=== PATIENT | male | born 1975 | race Caucasian/White ===

== ENCOUNTER 2017-05-17 01:21 | Emergency (ER) | payer SELFPAY ==
[~2017-05-17] VITALS: Ht 185.4 cm; Wt 100.0 kg
[2017-05-17] MEDS ORDERED: LIDOCAINE HCL 1% 20ML VIAL (Pyxis) INJ MC ONE (03:45)
[2017-05-17] MEDS ORDERED: LIDOCAINE/EPINEPHR/TETRACAINE 3ML TP ONE (03:45)
[2017-05-17] MEDS ORDERED: BACITRACIN ZINC OINT UDPKT TOP ONE (03:45)
[2017-05-17] MEDS ORDERED: TETANUS, DIPHTHERIA, PERTUSSIS VAC/PF 0.5ML (>7YR OLD) IM ONE (03:45)
[2017-05-17] MEDS ORDERED: CEPHALEXIN 500MG CAPSULE PO ONE (05:15)
[2017-05-17 05:32] VITALS: BP 122/80
== END 2017-05-17 05:35 | disposition home or self-care (01) ==
LOC: ER 01:21
DX: S61.401A Unspecified open wound of right hand, initial encounter (principal); F17.200 Nicotine dependence, unspecified, uncomplicated; X58.XXXA Exposure to other specified factors, initial encounter; Y93.89 Activity, other specified; Y92.89 Other specified places as the place of occurrence of the external cause; Y99.8 Other external cause status
CPT/HCPCS: 73130; 90471; 90715; 99284; J3490; Z7610

== ENCOUNTER 2021-08-28 13:55 | Emergency (ER) | payer MEDICAID ==
[~2021-08-28] VITALS: Ht 172.7 cm; Wt 77.0 kg
[2021-08-28] MEDS ORDERED: KETOROLAC 30MG/ML VIAL IM ONE (15:00)
[2021-08-28] MEDS ORDERED: NAPR-1176 MT (15:41)
[2021-08-28 16:07] VITALS: BP 128/95
== END 2021-08-28 16:15 | disposition home or self-care (01) ==
LOC: ER 13:55
DX: M79.605 Pain in left leg (principal)
CPT/HCPCS: 73562; 96372; 99283; J1885

== ENCOUNTER 2021-08-31 19:03 | Emergency (ER) | payer MEDICAID ==
[~2021-08-31] VITALS: Ht 188 cm; Wt 86.0 kg
[~2021-08-31 19:03] MED LIST: NAPR-1176 MT
[2021-08-31] MEDS ORDERED: KETOROLAC 60MG/2ML VIAL IM ONE (19:30)
[2021-08-31] MEDS ORDERED: NAPR-681 MT (21:08)
[2021-08-31] MEDS ORDERED: LIDO1ADH5 TP (21:08)
[2021-08-31 21:27] VITALS: BP 121/81
== END 2021-08-31 21:28 | disposition home or self-care (01) ==
LOC: ER 19:03
DX: M25.562 Pain in left knee (principal)
CPT/HCPCS: 93971; 96372; 99284; J1885

== ENCOUNTER 2021-11-06 20:56 | Emergency (ER) | payer MEDICAID ==
[~2021-11-06] VITALS: Ht 188 cm; Wt 96.5 kg
[~2021-11-06 20:56] MED LIST changes: +LIDO1ADH5 TP; +NAPR-681 MT
[2021-11-06 21:05] VITALS: BP 127/83
[2021-11-06 21:44] LABS: BASOPHILS % 0.5 % (0.0-2.0); EOSINOPHILS % 1.3 % (0.0-5.0); HEMATOCRIT. 45.6 % (42.0-52.0); HEMOGLOBIN. 15.4 g/dL (14.0-18.0); LYMPHOCYTES % 20.9 % (20.0-50.0); MEAN CORPUSCULAR HEMOGLOBIN 29.6 pg (28.0-32.0); MEAN CORPUSCULAR VOLUME 87.6 fL (80.0-94.0); MEAN PLATELET VOLUME 8.3 fl (7.4-10.4); MONOCYTES % 7.3 % (2.0-8.0); PLATELET 280 x1000/uL (130-400); RED BLOOD CELL COUNT 5.21 mill/uL (4.7-6.1); RED CELL DISTRIBUTION WIDTH 13.6 % (11.6-14.6)
[2021-11-06 21:51] LABS: CHLORIDE 109 mEq/L (98-107)
== END 2021-11-07 03:32 | disposition left against medical advice (07) ==
LOC: ER 20:56
DX: R07.9 Chest pain, unspecified (principal); Z91.19 Patient's noncompliance with other medical treatment and regimen
CPT/HCPCS: 36415; 71045; 80053; 83880; 84484; 85025; 93005; 99285

== ENCOUNTER 2021-11-12 06:36 | Emergency (ER) | payer MEDICAID ==
[~2021-11-12] VITALS: Ht 188 cm; Wt 96.2 kg
[2021-11-12 07:20] LABS: BASOPHILS % 0.4 % (0.0-2.0); EOSINOPHILS % 2.2 % (0.0-5.0); HEMATOCRIT. 45.1 % (42.0-52.0); HEMOGLOBIN. 15.1 g/dL (14.0-18.0); LYMPHOCYTES % 17.6 % (20.0-50.0); MEAN CORPUSCULAR HEMOGLOBIN 29.1 pg (28.0-32.0); MEAN PLATELET VOLUME 8.2 fl (7.4-10.4); MONOCYTES % 6.8 % (2.0-8.0); PLATELET 289 x1000/uL (130-400); RED BLOOD CELL COUNT 5.19 mill/uL (4.7-6.1); RED CELL DISTRIBUTION WIDTH 13.6 % (11.6-14.6)
[2021-11-12 07:27] LABS: CHLORIDE 107 mEq/L (98-107)
[2021-11-12] MEDS ORDERED: MORPHINE SULFATE 4 MG/ML CPJ (NOT FOR IM USE) IV ONE (10:45)
[2021-11-12 12:42] VITALS: BP 133/83
== END 2021-11-12 12:58 | disposition home or self-care (01) ==
LOC: ER 06:36
DX: R07.89 Other chest pain (principal)
CPT/HCPCS: 36415; 71045; 80053; 83880; 84484; 85025; 93005; 99285; Z7610